=== PATIENT | male | born 1970 | race African-American/Black ===

== ENCOUNTER 2022-10-11 11:13 | Inpatient (IN) | payer MEDICAID, OTHER ==
[~2022-10-11] VITALS: Ht 180.3 cm; Wt 106.0 kg
[2022-10-11] VITALS (19 sets, daily range): BP systolic 129–180; BP diastolic 76–123
[2022-10-11] MEDS ORDERED: SODIUM CHLORIDE 0.9% 1,000 ML IV ONE (11:30)
[2022-10-11] MEDS ORDERED: AMIODARONE HCL 900 MG in DEXT 5% WATER 500 ML IV ONE (11:30)
[2022-10-11] MEDS ORDERED: AMIODARONE HCL 150 MG in DEXT 5% WATER 100 ML IV ONE (11:30)
[2022-10-11] MEDS ORDERED: AMIODARONE HCL 900 MG in DEXT 5% WATER 500 ML IV PRN (11:45)
[2022-10-11 12:00] LABS: BASOPHILS % 0.7 % (0.0-2.0); EOSINOPHILS % 1.2 % (0.0-5.0); HEMATOCRIT. 43.4 % (42.0-52.0); HEMOGLOBIN. 14.5 g/dL (14.0-18.0); LYMPHOCYTES % 20.6 % (20.0-50.0); MEAN CORPUSCULAR HEMOGLOBIN 28.8 pg (28.0-32.0); MEAN CORPUSCULAR VOLUME 86.2 fL (80.0-94.0); MEAN PLATELET VOLUME 8.6 fl (7.4-10.4); MONOCYTES % 5.3 % (2.0-8.0); NEUTROPHILS % 72.2 % (40.0-76.0); PLATELET 275 x1000/uL (130-400); RED BLOOD CELL COUNT 5.04 mill/uL (4.7-6.1); RED CELL DISTRIBUTION WIDTH 15.6 % (11.6-14.6)
[2022-10-11 12:07] LABS: CHLORIDE 108 mEq/L (98-107)
[2022-10-11 12:17] LABS: ETHANOL BLOOD < 10 mg/dL
[2022-10-11 12:21] LABS: PROTHROMBIN TIME 10.5 sec (9.6-11.0)
[2022-10-11] MEDS ORDERED: POTASSIUM CHLORIDE 20MEQ TABLET SR PO ONE (13:15)
[2022-10-11 13:30] LABS: CLARITY URINE CLEAR (CLEAR); COLOR URINE YELLOW (YELLOW); KETONES URINE NEGATIVE (NEGATIVE); LEUKOCYTE ESTERASE URINE NEGATIVE (NEGATIVE); NITRITE URINE NEGATIVE (NEGATIVE); OCCULT BLOOD URINE NEGATIVE (NEGATIVE); PH URINE 7.5 (4.5-8.0); PROTEIN URINE NEGATIVE (NEGATIVE); SPECIFIC GRAVITY URINE 1.003 (1.005-1.030); UROBILINOGEN URINE 0.2 E.U./dL (0.2-1.0)
[2022-10-11 14:21] LABS: *AMPHETAMINES SCREEN URINE NEGATIVE (NEGATIVE); *BARBITURATES SCREEN URINE NEGATIVE (NEGATIVE); *BENZODIAZEPINES SCREEN URINE NEGATIVE (NEGATIVE); *COCAINE SCREEN URINE NEGATIVE (NEGATIVE); CANNABINOID URINE SCREEN NEGATIVE (NEGATIVE); METHADONE URINE SCREEN NEGATIVE (NEGATIVE); OPIATES URINE SCREEN NEGATIVE (NEGATIVE); PHENCYCLIDINE URINE SCREEN NEGATIVE (NEGATIVE)
[2022-10-11] MEDS ORDERED: LISI-649 MT (20:13)
[2022-10-11] MEDS ORDERED: AMIODARONE HCL 900 MG in DEXT 5% WATER 482 ML IV PRN (20:45)
[2022-10-11] MEDS ORDERED: ENOXAPARIN 40MG/0.4ML SYR SUBCUT SCH (21:00)
[2022-10-11] MEDS: HYDRALAZINE 20MG/ML VIAL IV PRN (21:48)
[2022-10-12] VITALS (48 sets, daily range): BP systolic 124–194; BP diastolic 50–130
[2022-10-12 05:11] LABS: CHLORIDE 107 mEq/L (98-107)
[2022-10-12 05:13] LABS: BASOPHILS % 0.5 % (0.0-2.0); EOSINOPHILS % 1.6 % (0.0-5.0); HEMATOCRIT. 39.1 % (42.0-52.0); HEMOGLOBIN. 13.1 g/dL (14.0-18.0); LYMPHOCYTES % 25.2 % (20.0-50.0); MEAN CORPUSCULAR HEMOGLOBIN 29.1 pg (28.0-32.0); MEAN CORPUSCULAR VOLUME 86.6 fL (80.0-94.0); MEAN PLATELET VOLUME 8.5 fl (7.4-10.4); MONOCYTES % 5.3 % (2.0-8.0); NEUTROPHILS % 67.4 % (40.0-76.0); PLATELET 242 x1000/uL (130-400); RED BLOOD CELL COUNT 4.51 mill/uL (4.7-6.1); RED CELL DISTRIBUTION WIDTH 15.3 % (11.6-14.6)
[2022-10-12 05:22] LABS: HDL CHOLESTEROL 51 mg/dL (40-59); LDL CHOLESTEROL 127 mg/dL (5-100)
[2022-10-12] MEDS ORDERED: ASPIRIN 81MG TABLET PO SCH (09:00)
[2022-10-12] MEDS: HYDRALAZINE 20MG/ML VIAL IV PRN (09:01)
[2022-10-12] MEDS ORDERED: PANTOPRAZOLE SODIUM 40 MG/VIAL IV SCH (10:45)
[2022-10-12] MEDS ORDERED: HEPARIN 25,000 UNITS PREMIX 250 ML IV SCH (10:45)
[2022-10-12] MEDS ORDERED: ONDANSETRON HCL 4MG/2ML INJ IV PRN (11:00)
[2022-10-12] MEDS ORDERED: ACETAMINOPHEN 325MG TABLET PO PRN (11:00)
[2022-10-12] MEDS ORDERED: AMLODIPINE 2.5MG TABLET PO SCH (12:15)
[2022-10-12] MEDS ORDERED: HYDRALAZINE 20MG/ML VIAL IV PRN (12:15)
[2022-10-12] MEDS ORDERED: CLONIDINE 0.1MG TABLET PO PRN (12:24)
[2022-10-12] MEDS ORDERED: POTASSIUM CHLORIDE 20MEQ TABLET SR PO NR (12:25)
[2022-10-12] MEDS ORDERED: LOSARTAN POTASSIUM 25 MG TABLET PO SCH (12:27)
[2022-10-12] MEDS ORDERED: ATORVASTATIN CALCIUM 40MG TABLET PO SCH (21:00)
[2022-10-12] MEDS ORDERED: METOPROLOL TARTRATE 25MG TABLET PO SCH (21:00)
[2022-10-12] MEDS ORDERED: CARVEDILOL 3.125 MG TABLET PO SCH (21:00)
[2022-10-12] MEDS ORDERED: ENOXAPARIN 30MG/0.3ML SYR SUBCUT SCH (23:00)
== END 2022-10-12 13:40 | disposition left against medical advice (07) | DRG 190 ==
LOC: ER 11:34 → MICUSO 13:34 → EDBEDREQTM 13:49 → EDBEDREQ 13:49 → EDBEDREQSVC 13:49 → CVICU 18:45
PROVIDERS: ADMIT Internal Medicine; ATTEND Internal Medicine
DX: I21.4 Non-ST elevation (NSTEMI) myocardial infarction (principal); I50.23 Acute on chronic systolic (congestive) heart failure; I47.20 Ventricular tachycardia, unspecified; I42.9 Cardiomyopathy, unspecified; I11.0 Hypertensive heart disease with heart failure; F17.210 Nicotine dependence, cigarettes, uncomplicated; F10.10 Alcohol abuse, uncomplicated; Z53.29 Procedure and treatment not carried out because of patient's decision for other reasons
CPT/HCPCS: 36415; 71045; 80048; 80053; 80061; 80305; 80320; 81003; 83036; 83605; 83735; 83880; 84145; 84484; 85025; 87426; 93005; 93306; 99291; C9113; J0282; J0360; J1650; J7030; J7060; G0480